=== PATIENT | female | born 2005 | race Caucasian/White ===

== ENCOUNTER 2025-04-05 13:29 | Emergency (ER) | payer BC, OTHER ==
[2025-04-05] MEDS ORDERED: Ibuprofen 200 MG TAB ONE (15:17)
== END 2025-04-05 15:30 | disposition home or self-care (01) ==
LOC: CSHERS 13:29
DX: S13.4XXA Sprain of ligaments of cervical spine, initial encounter (principal); S80.11XA Contusion of right lower leg, initial encounter; V89.2XXA Person injured in unspecified motor-vehicle accident, traffic, initial encounter
CPT/HCPCS: 72040; 99283